=== PATIENT | female | born 1995 | race African-American/Black ===

== ENCOUNTER 2020-01-28 17:13 | Emergency (ER) | payer MEDICAID, OTHER ==
[~2020-01-28] VITALS: Ht 175.3 cm; Wt 69.9 kg
[~2020-01-28 17:13] MED LIST: KEFLEX500 MG ORAL; NKM
[2020-01-28 17:20] VITALS: BP 112/76
--- NOTE | 2020-01-28 17:38 | Emergency Room Report ---
History of Present Illness General Chief Complaint: General Complaint Source: Patient Present Illness HPI 24-year-old female presents with preop EKG request, patient is going to get a [place] butt lift in [place] currently has no complaints patient presents for evaluation and treatment Allergies: Coded Allergies: No Known Allergies (Unverified , 04/24/15) COVID-19 Screening Contact w/high risk pt: No Experienced COVID-19 symptoms?: No COVID-19 Testing performed [employer]LECT[employer]SM[employer]ION [employer]INEER: No Patient History Past Medical History: see triage record Last Menstrual Period: 01/01/2020 Now: No Reviewed Nursing Documentation: PMH: Agreed; PSxH: Agreed Nursing Documentation-PMH Past Medical History: No Stated History Review of Systems All Other Systems: negative except mentioned in HPI Physical Exam Vital Signs Date Time Temp Pulse Resp B/P (MAP) Pulse Ox O2 Delivery O2 Flow Rate FiO2 01/28/20 17:17 98.1 67 20 112/76 (88) 98 Room Air General Appearance: well appearing, no apparent distress Head: normocephalic, atraumatic ENT: hearing grossly normal, normal voice Neck: full range of motion, supple Respiratory: no respiratory distress, speaking full sentences Neurologic: alert, normal gait Psychiatric: mood/affect normal Skin: no rash Medical Decision Making Diagnostic Impression: Primary Impression: Encounter for medical screening examination ER Course 24-year-old female presents with medical screening exam, no acute pathology at this time EKG negative, patient provided copy with EKG disposition home with return precautions follow-up with PCP EKG Diagnostic Results EKG Time: 17:21 EP Interpretation: NSR, rate 63, QTc 411, no acute ST elevations, normal axis Last Vital Signs Date Time Temp Pulse Resp B/P (MAP) Pulse Ox O2 Delivery O2 Flow Rate FiO2 01/28/20 17:17 98.1 67 20 112/76 (88) 98 Room Air Disposition: HOME, SELF-CARE Condition: Stable Referrals: [facility] Patient Instructions: Medical Screening Exam Additional Instructions: The patient was provided with discharge instructions, notified to follow-up with a primary care doctor and or specialist in the next 24-48 hours, and to return to the ED if they have worsening of their symptoms. Please note that this report is being documented using Deezer technology. This can lead to erroneous entry secondary to incorrect interpretation by the dictating instrument. Thony Lujan MD Jan 28, 2020 17:38
[2020-01-28 17:40] VITALS: BP 112/76
--- NOTE | 2020-01-29 15:29 | Cardiology Report ---
APPROVED REPORT EKG Measurement Heart [id number] <Conclusion> Normal sinus rhythm Normal ECG
== END 2020-01-28 17:41 | disposition home or self-care (01) ==
LOC: EMR 17:25
DX: Z01.810 Encounter for preprocedural cardiovascular examination (principal)
CPT/HCPCS: 93005; Z7502; 99281